=== PATIENT | male | born 1965 | race American Indian/Alaskan Native ===

== ENCOUNTER 2019-02-21 10:22 | Emergency (ER) | payer SELFPAY ==
[2019-02-21] MEDS ORDERED: SODIUM CHLORIDE 0.9% 1000 ML 1,000 ML IV ONE (11:26)
--- NOTE | 2019-02-21 11:29 | Emergency Department Report ---
ED General Adult HPI - General Chief complaint: Dizziness Stated complaint: SYNCOPAL EPISODE Time Seen by Provider: 02/21/19 11:26 Source: patient, EMS Mode of arrival: Stretcher Limitations: No Limitations - History of Present Illness Initial comments: pt is a 53 yo AA male who comes to the ER from his probation officers office. Pt was incarcerated until this AM. Pt reports that yesterday while in shelter- that he had not been given food or water for 2 days. He reports a "fainting spell" yesterday while in shelter and this am while with his humane officer. allergies none pmh none psh hernia repair home meds none no drugs/etoh or cig for 28 months. Pt denies injury during his fainting spells. He was not incontinent. He denies fever/chills/n/v/d/abd pain/chest pain or sob. He is non ill and non toxic appearing on arrival to ER. - Related Data Previous Rx's Medication Instructions Recorded Last Taken Type Fluticasone [Flonase] 1 spray NS QDAY #1 bottle 06/10/16 Unknown Rx Loratadine [Claritin] 10 mg PO DAILY #14 tablet 06/10/16 Unknown Rx predniSONE [Deltasone] 50 mg PO QDAY #5 tab 06/10/16 Unknown Rx Allergies Allergy/AdvReac Type Severity Reaction Status Date / Time No Known Allergies Allergy Unverified 06/10/16 13:21 ED Review of Systems ROS: Stated complaint: SYNCOPAL EPISODE Other details as noted in HPI Comment: All other systems reviewed and negative ED Past Medical Hx - Past Medical History Previous Medical History?: No Hx Seizures: No - Surgical History Past Surgical History?: No Additional Surgical History: HERNIA - Family History Family history: no significant - Social History Smoking Status: Current Every Day Smoker Substance Use Type: None - Medications Home Medications: Home Medications Medication Instructions Recorded Confirmed Last Taken Type Fluticasone [Flonase] 1 spray NS QDAY #1 bottle 06/10/16 Unknown Rx Loratadine [Claritin] 10 mg PO DAILY #14 tablet 06/10/16 Unknown Rx predniSONE [Deltasone] 50 mg PO QDAY #5 tab 06/10/16 Unknown Rx ED Physical Exam - General Limitations: No Limitations General appearance: alert, in no apparent distress - Head Head exam: Present: atraumatic, normocephalic - Eye Eye exam: Present: normal appearance - ENT ENT exam: Present: mucous membranes moist - Neck Neck exam: Present: normal inspection - Respiratory Respiratory exam: Present: normal lung sounds bilaterally. Absent: respiratory distress - Cardiovascular Cardiovascular Exam: Present: regular rate, normal rhythm. Absent: systolic murmur, diastolic murmur, rubs, gallop - GI/Abdominal GI/Abdominal exam: Present: soft, normal bowel sounds - Rectal Rectal exam: Present: deferred - Extremities Exam Extremities exam: Present: normal inspection - Back Exam Back exam: Present: normal inspection - Neurological Exam Neurological exam: Present: alert, oriented X3 - Psychiatric Psychiatric exam: Present: normal affect, normal mood - Skin Skin exam: Present: warm, dry, intact, normal color. Absent: rash ED Course Vital Signs 02/21/19 02/21/19 02/21/19 10:40 10:41 10:50 Temperature 97.9 F Pulse Rate 84 82 88 Respiratory 18 20 18 Rate Blood Pressure 130/60 O2 Sat by Pulse 99 97 100 Oximetry 02/21/19 02/21/19 02/21/19 11:01 12:36 13:00 Temperature Pulse Rate 97 H 84 87 Respiratory 18 14 15 Rate Blood Pressure 130/60 139/78 130/60 O2 Sat by Pulse 100 97 99 Oximetry 02/21/19 14:00 Temperature Pulse Rate 91 H Respiratory 20 Rate Blood Pressure 138/83 O2 Sat by Pulse 98 Oximetry ED Medical Decision Making - Lab Data Result diagrams: 02/21/19 11:14 02/21/19 11:14 - EKG Data EKG shows normal: sinus rhythm Rate: normal - EKG Data When compared to previous EKG there are: no significant change Interpretation: no acute changes - Radiology Data Radiology results: report reviewed, image reviewed - Medical Decision Making Lab Results 02/21/19 02/21/19 02/21/19 Range/Units 11:14 11:14 11:14 WBC 8.1 (4.5-11.0) K/mm3 RBC 4.65 (3.65-5.03) M/mm3 Hgb 15.9 H (11.8-15.2) gm/dl Hct 47.1 H (35.5-45.6) % MCV 101 H (84-94) fl MCH 34 H (28-32) pg MCHC 34 (32-34) % RDW 13.1 L (13.2-15.2) % Plt Count 254 (140-440) K/mm3 Lymph % (Auto) 13.9 (13.4-35.0) % [place] % (Auto) 9.0 H (0.0-7.3) % Eos % (Auto) 0.1 (0.0-4.3) % Baso % (Auto) 0.2 (0.0-1.8) % Lymph # 1.1 L (1.2-5.4) K/mm3 [place] # 0.7 (0.0-0.8) K/mm3 Eos # 0.0 (0.0-0.4) K/mm3 Baso # 0.0 (0.0-0.1) K/mm3 Seg Neutrophils % 76.8 H (40.0-70.0) % Seg Neutrophils # 6.2 (1.8-7.7) K/mm3 Sodium 141 (137-145) mmol/L Potassium 4.7 (3.6-5.0) mmol/L Chloride 101.1 (98-107) mmol/L Carbon Dioxide 22 (22-30) mmol/L Anion Gap 23 mmol/L BUN 16 (9-20) mg/dL Creatinine 1.2 (0.8-1.5) mg/dL Estimated GFR > 60 ml/min BUN/Creatinine Ratio 13 % Glucose 150 H (75-100) mg/dL Calcium 9.0 (8.4-10.2) mg/dL Total Bilirubin 0.40 (0.1-1.2) mg/dL AST 13 (5-40) units/L ALT 14 (7-56) units/L Alkaline Phosphatase 84 (35-129) units/L Total Creatine Kinase 133 (55-170) units/L Troponin T < 0.010 (0.00-0.029) ng/mL Total Protein 6.7 (6.3-8.2) g/dL Albumin 4.0 (3.9-5) g/dL Albumin/Globulin Ratio 1.5 % Urine Color (Yellow) Urine Turbidity (Clear) Urine pH (5.0-7.0) Ur Specific [place] (1.003-1.030) Urine Protein (Negative) mg/dL Urine Glucose (UA) (Negative) mg/dL Urine Ketones (Negative) mg/dL Urine Blood (Negative) Urine Nitrite (Negative) Urine Bilirubin (Negative) Urine Urobilinogen (<2.0) mg/dL Ur Leukocyte Esterase (Negative) Urine WBC (Auto) (0.0-6.0) /HPF Urine RBC (Auto) (0.0-6.0) /HPF Urine Bacteria (Auto) (Negative) /HPF Urine Mucus /HPF Urine Opiates Screen Urine Methadone Screen Ur Barbiturates Screen Ur Phencyclidine Scrn Ur Amphetamines Screen U Benzodiazepines Scrn Urine Cocaine Screen U Marijuana (THC) Screen Drugs of Abuse Note 02/21/19 02/21/19 Range/Units 12:33 12:33 WBC (4.5-11.0) K/mm3 RBC (3.65-5.03) M/mm3 Hgb (11.8-15.2) gm/dl Hct (35.5-45.6) % MCV (84-94) fl MCH (28-32) pg MCHC (32-34) % RDW (13.2-15.2) % Plt Count (140-440) K/mm3 Lymph % (Auto) (13.4-35.0) % [place] % (Auto) (0.0-7.3) % Eos % (Auto) (0.0-4.3) % Baso % (Auto) (0.0-1.8) % Lymph # (1.2-5.4) K/mm3 [place] # (0.0-0.8) K/mm3 Eos # (0.0-0.4) K/mm3 Baso # (0.0-0.1) K/mm3 Seg Neutrophils % (40.0-70.0) % Seg Neutrophils # (1.8-7.7) K/mm3 Sodium (137-145) mmol/L Potassium (3.6-5.0) mmol/L Chloride (98-107) mmol/L Carbon Dioxide (22-30) mmol/L Anion Gap mmol/L BUN (9-20) mg/dL Creatinine (0.8-1.5) mg/dL Estimated GFR ml/min BUN/Creatinine Ratio % Glucose (75-100) mg/dL Calcium (8.4-10.2) mg/dL Total Bilirubin (0.1-1.2) mg/dL AST (5-40) units/L ALT (7-56) units/L Alkaline Phosphatase (35-129) units/L Total Creatine Kinase (55-170) units/L Troponin T (0.00-0.029) ng/mL Total Protein (6.3-8.2) g/dL Albumin (3.9-5) g/dL Albumin/Globulin Ratio % Urine Color Yellow (Yellow) Urine Turbidity Clear (Clear) Urine pH 8.0 H (5.0-7.0) Ur Specific [place] 1.012 (1.003-1.030) Urine Protein <15 mg/dl (Negative) mg/dL Urine Glucose (UA) Neg (Negative) mg/dL Urine Ketones Neg (Negative) mg/dL Urine Blood Neg (Negative) Urine Nitrite Neg (Negative) Urine Bilirubin Neg (Negative) Urine Urobilinogen < 2.0 (<2.0) mg/dL Ur Leukocyte Esterase Neg (Negative) Urine WBC (Auto) 1.0 (0.0-6.0) /HPF Urine RBC (Auto) 2.0 (0.0-6.0) /HPF Urine Bacteria (Auto) 1+ (Negative) /HPF Urine Mucus Few /HPF Urine Opiates Screen Presumptive negative Urine Methadone Screen Presumptive negative Ur Barbiturates Screen Presumptive negative Ur Phencyclidine Scrn Presumptive negative Ur Amphetamines Screen Presumptive negative U Benzodiazepines Scrn Presumptive negative Urine Cocaine Screen Presumptive negative U Marijuana (THC) Screen Presumptive negative Drugs of Abuse Note Disclamer Vital Signs 02/21/19 02/21/19 02/21/19 10:40 10:41 10:50 Temperature 97.9 F Pulse Rate 84 82 88 Respiratory 18 20 18 Rate Blood Pressure 130/60 O2 Sat by Pulse 99 97 100 Oximetry 02/21/19 02/21/19 11:01 12:36 Temperature Pulse Rate 97 H 84 Respiratory 18 14 Rate Blood Pressure 130/60 139/78 O2 Sat by Pulse 100 97 Oximetry VSS, non ill appearing. non toxic. no focal neuro def. ambulatory on arrival to ER. Labs noted UA noted UDS noted CT head and neck negative ambulating and taking po in ER dc home with family with PCP follow up. Pt verbalizes understanding of dc plan of care. - Differential Diagnosis dehydration/anxiety/drug related/seizure Critical care attestation.: If time is entered above; I have spent that time in minutes in the direct care of this critically ill patient, excluding procedure time. ED Disposition Clinical Impression: Dizziness Disposition: DC-01 TO HOME OR SELFCARE Is pt being admited?: No Does the pt Need Aspirin: No Condition: Stable Additional Instructions: hydrate well with water diet and activity as tolerate follow up with pcp for recheck within 48 hours referral below Referrals: PRIMARY CARE, [Primary Care Provider] - 3-5 Days [facility] [Outside] - 3-5 Days Forms: Work/School Release Form(ED) Time of Disposition: 13:11
[2019-02-21 11:40] LABS: Basophils % (Auto) 0.2 % (0.0-1.8); Eosinophils % (Auto) 0.1 % (0.0-4.3); Hematocrit 47.1 % (35.5-45.6); Hemoglobin 15.9 gm/dl (11.8-15.2); Lymphocytes # (Auto) 1.1 K/mm3 (1.2-5.4); Lymphocytes % (Auto) 13.9 % (13.4-35.0); Mean Corpuscular HGB Conc 34 % (32-34); Mean Corpuscular Volume 101 fl (84-94); Monocytes # (Auto) 0.7 K/mm3 (0.0-0.8); Platelet Count 254 K/mm3 (140-440); Red Blood Count 4.65 M/mm3 (3.65-5.03); Red Cell Distribution Width 13.1 % (13.2-15.2)
[2019-02-21 11:52] LABS: Alanine Aminotransferase 14 units/L (7-56); BUN/Creatinine Ratio 13; Blood Urea Nitrogen 16 mg/dL (9-20); Hemolysis Index 10
--- NOTE | 2019-02-21 12:39 | Cat Scan Report ---
. CT HEAD WITHOUT CONTRAST INDICATION / CLINICAL INFORMATION: syncope. TECHNIQUE: Axial imaging performed from the skull apex through the skull base without the use of cont rast. Sagittal and coronal reformatted images. All CT scans at this location are performed using CT dose reduction for ALARA by means of automated exposure control. COMPARISON: None available. FINDINGS: CEREBRAL PARENCHYMA: No significant abnormality. No acute territorial infarct. HEMORRHAGE: None. EXTRA-AXIAL SPACES: Normal in size and morphology for the patient's age. VENTRICULAR SYSTEM: Normal in size and morphology for the patient's age. MIDLINE SHIFT OR HERNIATION: None. CEREBELLUM / BRAINSTEM: No significant abnormality. CALVARIUM: No significant abnormality. ORBITS: Normal as visualized. PARANASAL SINUSES / MASTOID AIR CELLS: Normal as visualized. SOFT TISSUES of HEAD: No significant abnormality. ADDITIONAL FINDINGS: None. IMPRESSION: No acute intracranial abnormality. Signer Name: Juliano Burton Jr, MD Signed: 02/21/2019 12:35 PM Workstation Name: [id number]
--- NOTE | 2019-02-21 12:41 | Cat Scan Report ---
CT CERVICAL SPINE WITHOUT CONTRAST INDICATION: fall. TECHNIQUE: Axial imaging performed through the cervical spine without the use of contrast. Sagittal and coronal reconstructed images were also reviewed. All CT scans at this location are performed us ing CT dose reduction for ALARA by means of automated exposure control. COMPARISON: None FINDINGS: Alignment: Spinal alignment is normal. Bones: There is no acute osseous abnormality. No significant degenerative changes. No bone lesion. Soft tissues: No acute or significant incidental soft tissue abnormality. IMPRESSION: No acute abnormality. Signer Name: Juliano Burton Jr, MD Signed: 02/21/2019 12:36 PM Workstation Name: [id number]
[2019-02-21 12:58] LABS: Bacteria,Urine 1+ /HPF (Negative); Bilirubin,Urine NEG (Negative); Blood,Urine NEG (Negative); Color,Urine Yellow (Yellow); Mucus,Urine FEW /HPF; Protein,Urine <15 mg/dL mg/dL (Negative); Urobilinogen,Urine < 2.0 mg/dL (<2.0)
[2019-02-21 13:00] LABS: Amphetamine Screen,Urine PRESUMPTIVE NEGATIVE; Benzodiazepines Screen,Urine PRESUMPTIVE NEGATIVE; Cannabinoid Screen,Urine PRESUMPTIVE NEGATIVE; Cocaine Screen,Urine PRESUMPTIVE NEGATIVE; Methadone Screen,Urine PRESUMPTIVE NEGATIVE; Opiate Screen,Urine PRESUMPTIVE NEGATIVE
[2019-02-21 14:35] VITALS: BP 138/83
== END 2019-02-21 14:09 | disposition home or self-care (01) ==
LOC: ED 10:22
DX: R55 Syncope and collapse (principal); R42 Dizziness and giddiness; F17.200 Nicotine dependence, unspecified, uncomplicated
CPT/HCPCS: 36415; 70450; 72125; 80053; 80307; 81001; 82550; 84484; 85025; 93005; 93010; 96360; 99284; J7030

== ENCOUNTER 2019-02-25 11:00 | Emergency (ER) | payer SELFPAY ==
[2019-02-25] MEDS ORDERED: ASPIRIN 325 MG TAB PO ONE (11:37)
--- NOTE | 2019-02-25 11:38 | Event Note ---
ED Screening Note Date of service: 02/25/19 Time: 11:35 ED Screening Note: This is a 53 y.o. M. that presents to the ER with elevated blood pressure and chest discomfort. PMH of HTN This initial assessment/diagnostic orders/clinical plan/treatment(s) is/are subject to change based on patients health status, clinical progression and re- assessment by fellow clinical providers in the ED. Further treatment and workup at subsequent clinical providers discretion. Patient/guardian urged not to elope from the ED as their condition may be serious if not clinically assessed and managed. Initial orders include: Labs, EKG, & CXR
[2019-02-25 12:07] LABS: Basophils # (Auto) 0.1 K/mm3 (0.0-0.1); Basophils % (Auto) 0.7 % (0.0-1.8); Eosinophils % (Auto) 0.3 % (0.0-4.3); Hematocrit 42.3 % (35.5-45.6); Hemoglobin 14.8 gm/dl (11.8-15.2); Lymphocytes # (Auto) 2.2 K/mm3 (1.2-5.4); Mean Corpuscular HGB Conc 35 % (32-34); Mean Corpuscular Volume 100 fl (84-94); Monocytes # (Auto) 0.5 K/mm3 (0.0-0.8); Monocytes % (Auto) 6.4 % (0.0-7.3); Platelet Count 229 K/mm3 (140-440); Red Blood Count 4.21 M/mm3 (3.65-5.03); Red Cell Distribution Width 13.4 % (13.2-15.2)
[2019-02-25 12:28] LABS: BUN/Creatinine Ratio 10; Blood Urea Nitrogen 10 mg/dL (9-20); Calcium 9.2 mg/dL (8.4-10.2); Hemolysis Index 9
--- NOTE | 2019-02-25 13:07 | XRay Report ---
CHEST 1 VIEW INDICATION: Chest Pain. COMPARISON: None FINDINGS: Support devices: None. Heart: Within normal limits. Lungs/Pleura: No acute air space or interstitial disease. Additional findings: None. IMPRESSION: 1. No acute findings. Signer Name: Benny Champion MD Signed: 02/25/2019 1:03 PM Workstation Name: [id number]
[2019-02-25] MEDS ORDERED: hydrALAZINE 25 MG TAB PO ONE (14:42)
[2019-02-25] MEDS ORDERED: hydrALAZINE 20 MG/1 ML INJ IV ONE (14:44)
--- NOTE | 2019-02-25 14:57 | Emergency Department Report ---
ED Chest Pain HPI - General Chief Complaint: Chest Pain Stated Complaint: POSS HIGH BLOOD PRESSURE Time Seen by Provider: 02/25/19 11:35 Source: patient Mode of arrival: Wheelchair Limitations: No Limitations - History of Present Illness Initial Comments: 53-year-old -[place] male patient without significant past medical history presents with complaints of elevated blood pressure upon waking this morning and chest pain that occurred yesterday (now resolved). She states his pressure was 180/124. He denied any headache, dizziness, vision changes, numbness/tingling/weakness, history of [place]/CVA/DVT/PE, leg pain/swelling, or recent long travel. Patient also denies any shortness of breath and states chest pain has not been present at all today. He describes the chest pain as a burning sensation that is substernal and epigastric. She admits to history of heartburn and states pain seemed similar to that. He denies any previous history of high blood pressure and admits to heart disease in his mother. She was seen here in ED 02/21/2019 for syncopal episode that appeared to be due to dehydration and lack of food intake. He denies any further syncopal episodes or dizziness MD Complaint: chest pain - Related Data Previous Rx's Medication Instructions Recorded Last Taken Type Fluticasone [Flonase] 1 spray NS QDAY #1 bottle 06/10/16 Unknown Rx Loratadine [Claritin] 10 mg PO DAILY #14 tablet 06/10/16 Unknown Rx predniSONE [Deltasone] 50 mg PO QDAY #5 tab 06/10/16 Unknown Rx Allergies Allergy/AdvReac Type Severity Reaction Status Date / Time No Known Allergies Allergy Unverified 06/10/16 13:21 Heart Score - HEART Score History: Slightly suspicious EKG: Normal Age: 45-65 Risk factors: 1-2 risk factors Troponin: < normal limit HEART Score: 2 - Critical Actions Critical Actions: 0-3 pts:0.9-1.7%risk of adverse cardiac event.Candidate for discharge ED Review of Systems ROS: Stated complaint: POSS HIGH BLOOD PRESSURE Other details as noted in HPI Comment: All other systems reviewed and negative Respiratory: see HPI Cardiovascular: as per HPI Gastrointestinal: as per HPI Neurological: as per HPI ED Past Medical Hx - Past Medical History Previous Medical History?: Yes Hx Hypertension: Yes Hx Seizures: No - Surgical History Past Surgical History?: Yes Additional Surgical History: HERNIA - Social History Smoking Status: Never Smoker Substance Use Type: None - Medications Home Medications: Home Medications Medication Instructions Recorded Confirmed Last Taken Type Fluticasone [Flonase] 1 spray NS QDAY #1 bottle 06/10/16 Unknown Rx Loratadine [Claritin] 10 mg PO DAILY #14 tablet 06/10/16 Unknown Rx predniSONE [Deltasone] 50 mg PO QDAY #5 tab 06/10/16 Unknown Rx ED Physical Exam - General Limitations: No Limitations General appearance: alert, in no apparent distress - Head Head exam: Present: atraumatic, normocephalic - Eye Eye exam: Present: normal appearance - ENT ENT exam: Present: mucous membranes moist - Neck Neck exam: Present: full ROM. Absent: tenderness, lymphadenopathy - Respiratory Respiratory exam: Present: normal lung sounds bilaterally, chest wall tenderness. Absent: respiratory distress, wheezes, rales, rhonchi - Cardiovascular Cardiovascular Exam: Present: regular rate, normal rhythm. Absent: systolic murmur, diastolic murmur, rubs, gallop - GI/Abdominal GI/Abdominal exam: Present: soft. Absent: distended, tenderness, guarding, rebound, rigid - Extremities Exam Extremities exam: Present: normal inspection - Back Exam Back exam: Present: full ROM - Neurological Exam Neurological exam: Present: alert, oriented X3 - Psychiatric Psychiatric exam: Present: normal affect, normal mood - Skin Skin exam: Present: warm, dry, intact, normal color. Absent: rash ED Course Vital Signs 02/25/19 02/25/19 02/25/19 11:43 14:40 14:43 Temperature 98.4 F 98.2 F Pulse Rate 81 82 Respiratory 18 10 L 13 Rate Blood Pressure 175/107 Blood Pressure 146/87 [Left] O2 Sat by Pulse 100 98 Oximetry 02/25/19 02/25/19 02/25/19 15:00 15:02 15:30 Temperature Pulse Rate 79 74 78 Respiratory 13 16 Rate Blood Pressure 137/82 137/82 141/78 Blood Pressure [Left] O2 Sat by Pulse 98 95 Oximetry 02/25/19 02/25/19 16:00 16:30 Temperature Pulse Rate 75 69 Respiratory 18 13 Rate Blood Pressure 149/88 148/93 Blood Pressure [Left] O2 Sat by Pulse 98 97 Oximetry ED Medical Decision Making - Lab Data Result diagrams: 02/25/19 11:50 02/25/19 11:50 Lab Results 02/25/19 02/25/19 02/25/19 Range/Units 11:50 11:50 14:21 WBC 7.2 (4.5-11.0) K/mm3 RBC 4.21 (3.65-5.03) M/mm3 Hgb 14.8 (11.8-15.2) gm/dl Hct 42.3 (35.5-45.6) % MCV 100 H (84-94) fl MCH 35 H (28-32) pg MCHC 35 H (32-34) % RDW 13.4 (13.2-15.2) % Plt Count 229 (140-440) K/mm3 Lymph % (Auto) 31.0 (13.4-35.0) % [place] % (Auto) 6.4 (0.0-7.3) % Eos % (Auto) 0.3 (0.0-4.3) % Baso % (Auto) 0.7 (0.0-1.8) % Lymph # 2.2 (1.2-5.4) K/mm3 Ness # 0.5 (0.0-0.8) K/mm3 Eos # 0.0 (0.0-0.4) K/mm3 Baso # 0.1 (0.0-0.1) K/mm3 Seg Neutrophils % 61.6 (40.0-70.0) % Seg Neutrophils # 4.4 (1.8-7.7) K/mm3 Sodium 142 (137-145) mmol/L Potassium 4.9 (3.6-5.0) mmol/L Chloride 106.1 (98-107) mmol/L Carbon Dioxide 25 (22-30) mmol/L Anion Gap 16 mmol/L BUN 10 (9-20) mg/dL Creatinine 1.0 (0.8-1.5) mg/dL Estimated GFR > 60 ml/min BUN/Creatinine Ratio 10 % Glucose 100 (75-100) mg/dL Calcium 9.2 (8.4-10.2) mg/dL Troponin T < 0.010 < 0.010 (0.00-0.029) ng/mL - EKG Data EKG shows normal: sinus rhythm Rate: normal - Radiology Data Radiology results: report reviewed CHEST 1 VIEW INDICATION: Chest Pain. COMPARISON: None FINDINGS: Support devices: None. Heart: Within normal limits. Lungs/Pleura: No acute air space or interstitial disease. Additional findings: None. IMPRESSION: 1. No acute findings. - Medical Decision Making 53-year-old male patient without significant past medical history presents with complaints of chest pain yesterday (none today) and elevated blood pressure this morning at home of 180/124. Pressure initially 175/107 on arrival to ED, [facility] er pressure on repeat at 138/78 without medical intervention. Patient continues to deny any current chest pain. His heart score is a 2. Labs are WNL. Initial and repeat troponin are normal initially repeat EKG are without acute findings. Recommend patient follow-up with primary care for blood pressure recheck and possible diagnosis of hypertension. Also recommend patient follow- up cardiology concerning chest pain. Strict return precautions were discussed in detail with patient who states understanding. Critical care attestation.: If time is entered above; I have spent that time in minutes in the direct care of this critically ill patient, excluding procedure time. ED Disposition Clinical Impression: Elevated blood pressure reading, Chest pain Disposition: DC-01 TO HOME OR SELFCARE Is pt being admited?: No Condition: Stable Instructions: Chest Pain (ED), Hypertension (ED) Referrals: [facility] [Provider Group] - 2-3 Days TYREE RIVERS MD [Staff Physician] - 2-3 Days
[2019-02-25 16:46] VITALS: BP 148/93
== END 2019-02-25 17:35 | disposition home or self-care (01) ==
LOC: ED 11:00
DX: R07.89 Other chest pain (principal); I10 Essential (primary) hypertension; Z79.899 Other long term (current) drug therapy
CPT/HCPCS: 36415; 71045; 80048; 84484; 85025; 93005; 93010